=== PATIENT | female | born 1970 | race Caucasian/White ===

== ENCOUNTER 2018-05-09 19:53 | Emergency (ER) | payer BC ==
--- NOTE | 2018-05-09 20:18 | EDPHY ---
H & P Stated Complaint: L toohache, facial swelling, and numbness - Personal History LMP (Females 10-55): Now Current Tetanus/Diphtheria Vaccine: Yes Current Tetanus Diphtheria and Acellular Pertussis (TDAP): Yes Tetanus Vaccine Date: 2009 - Medical/Surgical History Hx Asthma: No Hx Chronic Respiratory Disease: No Hx Diabetes: No Hx Cardiac Disease: No Hx Renal Disease: No Hx Cirrhosis: No Hx Alcoholism: No Hx HIV/AIDS: No Hx Splenectomy or Spleen Trauma: No Other PMH: , breast aug, hernia repair - Social History Smoking Status: Never smoked Time Seen by Provider: 05/09/18 20:10 HPI/ROS: CHIEF COMPLAINT: Toothache, neck pain, ear pain, chest pain HISTORY OF PRESENT ILLNESS: 48-year-old female via private vehicle complaining of left neck and arm pain. Triage note states left dental pain and she does state that she has experienced left dental pain for a few days but also notes that since approximately 3:00 p.m. Today before getting on a plane from [place] in the seated [place] she has been experiencing left-sided neck arm in partial chest pain to the point where she having difficulty sitting upright. She traveled by plane frequently. PRIMARY CARE PROVIDER: In [facility] REVIEW OF SYSTEMS: 10 systems reviewed and negative with the exception of the elements mentioned in the history of present illness PAST MEDICAL & SURGICAL HISTORY: No pertinent medical or surgical history SOCIAL HISTORY: Nonsmoker. No drug use. . Lives in [place], extensive airplane travel (approx 150,000 air miles/year) FAMILY HISTORY: Biologic father age 47 of [place] PHYSICAL EXAM (Prior to examination, patient consented to physical exam, hands were washed and my usual and customary physical exam procedures followed) 1) GENERAL: Well-developed, well-nourished, alert and oriented. Appears to be in no acute distress. 2) HEAD: Normocephalic, atraumatic 3) HEENT: Pupils equal, round, reactive to light bilaterally. Sclera anicteric. Nasopharynx, oropharynx, clear, no lesions. Moist Mucous membranes. Tender to percussion buccal aspect of gingiva teeth 13, 14, 15. Gingival irritation noted. No evidence of abscess. Floor of mouth soft no evidence of Nain's angina. Right ear clear EAC, no evidence of otitis media otitis externa. Left ear: Tender to palpation the tragus and movement of the auricle. Left external auditory canals erythematous with no debris or drainage. No foul smell. Left tympanic membrane is grossly intact, nonbulging non erythematous with no evidence of otitis media. 4) NECK: Full range of motion, no meningeal signs. Positive left anterior cervical adenopathy which is tender 5) LUNGS: Clear auscultation bilaterally, no wheezes, no rhonchi, no retractions. 6) HEART: Regular rate and rhythm, no murmur, no heave, no gallop. 7) ABDOMEN: No guarding, no rebound, no focal tenderness, negative McBurney's, negative Swan's, negative Rovsing's, negative peritoneal sign, 8) MUSCULOSKELETAL: Moving all extremities, no focal areas of tenderness, no obvious trauma. No peripheral edema or discoloration. Specifically left upper extremity has pain-free range of motion, no evidence of trauma, no discoloration , no rash no lesions, soft compartments, neurovascularly intact 9) BACK: No CVA tenderness, no midline vertebral tenderness, no fluctuance, no step-off, no obvious trauma, no visual or palpable abnormality. 10) SKIN: No rash, no petechiae. 11) Psychiatric: Patient is oriented X 3, there is no agitation. DIFFERENTIAL DIAGNOSIS: In no particular order, including but not limited to myocardial ischemia, pulmonary embolus, chest wall pain, pleural inflammation and pulmonary infectious causes. (Evgeny Boggs Tessa) Constitutional: Initial Vital Signs Temperature (C) 36.7 C 05/09/18 19:58 Heart Rate 62 05/09/18 19:58 Respiratory Rate 16 05/09/18 19:58 Blood Pressure 114/78 05/09/18 19:58 O2 Sat (%) 95 05/09/18 19:58 O2 Delivery Mode Room Air Allergies/Adverse Reactions: No Known Allergies Allergy (Unverified 05/09/18 19:58) Home Medications: Medication Instructions Recorded Amoxicillin/Clavulanate Pot 875 mg PO BID #14 tab 05/09/18 [Augmentin 875 mg tab] Ciprofloxacin HCl/Dexameth 4 drop OT BID #1 drops.susp 05/09/18 [Ciprodex Otic Suspension] Hydrocodone/APAP 5/325 [[place] 1 tab PO Q6 PRN #15 tab 05/09/18 5/325 (RX)] Medical Decision Making - Diagnostics EKG Interpretation: EKG interpreted by me shows normal sinus rhythm normal interval and axis. QRS is normal there is no significant ST elevation or depression. There is no arrhythmia. The rate is 59 (Mehdi Kaminski) Imaging Results: Imaging Impressions Chest X-Ray 05/09/18 20:19 Impression: Query mild airways disease. ED Course/Re-evaluation: Patient was re-evaluated with serial exams the patient was also seen exam by Dr. Mehdi Kaminski in the E [facility]. She is noted to have gingival irritation and odontalgia. I recommend follow up with her dentist when she returns [place]. I am starting her on Augmentin. She is also noted to have a left otitis externa with no evidence of otitis media. No evidence of mastoiditis. She is started on Ciprodex drops as well as given analgesia. Regarding her chest pain complaints, I think that this less than likely represents cardiac and /or pulmonary disease. She has negative D-dimer with moderate pretest suspicion , negative troponin in the presence of symptoms for several hours, normal sinus rhythm on EKG, negative troponin. She is low risk Heart score. Plan will be discharged with close follow-up with her primary care provider in dentist in [place]. My Usual and customary discharge precautions instructions provided. She feels comfortable being discharged. (Evgeny Boggs) - Data Points Laboratory Results: Laboratory Results 05/09/18 20:40 05/09/18 20:40 05/09/18 05/09/18 05/09/18 20:41 20:40 20:40 WBC RBC Hgb Hct MCV MCH MCHC RDW Plt Count MPV Neut % (Auto) Lymph % (Auto) [place] % (Auto) Eos % (Auto) Baso % (Auto) Nucleat RBC Rel Count Absolute Neuts (auto) Absolute Lymphs (auto) Absolute Monos (auto) Absolute Eos (auto) Absolute Basos (auto) Absolute Nucleated RBC Immature Gran % Immature Gran # D-Dimer < 0.27 ug/mLFEU ug/mLFEU (0.00-0.50) Sodium 138 mEq/L mEq/L (135-145) Potassium 3.9 mEq/L mEq/L (3.3-5.0) Chloride 102 mEq/L mEq/L (97-110) Carbon Dioxide 27 mEq/l mEq/l (22-31) Anion Gap 9 mEq/L mEq/L (6-14) BUN 7 mg/dL mg/dL (7-23) Creatinine 0.7 mg/dL mg/dL (0.6-1.0) Estimated GFR > 60 Glucose 87 mg/dL mg/dL (70-100) Calcium 9.2 mg/dL mg/dL (8.5-10.4) POC Troponin I 0.00 ng/mL ng/mL (0.00-0.08) 05/09/18 20:40 WBC 8.48 10^3/uL 10^3/uL (3.80-9.50) RBC 3.94 10^6/uL L 10^6/uL (4.18-5.33) Hgb 12.6 g/dL g/dL (12.6-16.3) Hct 37.2 % L % (38.0-47.0) MCV 94.4 fL fL (81.5-99.8) MCH 32.0 pg pg (27.9-34.1) MCHC 33.9 g/dL g/dL (32.4-36.7) RDW 12.3 % % (11.5-15.2) Plt Count 248 10^3/uL 10^3/uL (150-400) MPV 9.3 fL fL (8.7-11.7) Neut % (Auto) 49.2 % % (39.3-74.2) Lymph % (Auto) 36.3 % % (15.0-45.0) [place] % (Auto) 8.1 % % (4.5-13.0) Eos % (Auto) 5.5 % % (0.6-7.6) Baso % (Auto) 0.5 % % (0.3-1.7) Nucleat RBC Rel Count 0.0 % % (0.0-0.2) Absolute Neuts (auto) 4.17 10^3/uL 10^3/uL (1.70-6.50) Absolute Lymphs (auto) 3.08 10^3/uL H 10^3/uL (1.00-3.00) Absolute Monos (auto) 0.69 10^3/uL 10^3/uL (0.30-0.80) Absolute Eos (auto) 0.47 10^3/uL H 10^3/uL (0.03-0.40) Absolute Basos (auto) 0.04 10^3/uL 10^3/uL (0.02-0.10) Absolute Nucleated RBC 0.00 10^3/uL 10^3/uL (0-0.01) Immature Gran % 0.4 % % (0.0-1.1) Immature Gran # 0.03 10^3/uL 10^3/uL (0.00-0.10) D-Dimer Sodium Potassium Chloride Carbon Dioxide Anion Gap BUN Creatinine Estimated GFR Glucose Calcium POC Troponin I Medications Given: Discontinued Medications Hydrocodone Bitart/Acetaminophen ([place] 5/325mg Prepack#6) 1 btl TAKEHOME EDNOW ONE Stop: 05/09/18 22:33 Last Admin: 05/09/18 22:43 Dose: 1 btl Amoxicillin/Clavulanate Potassium (Augmentin 875mg) 875 mg PO EDNOW ONE PRN Reason: Protocol Stop: 05/09/18 22:46 Last Admin: 05/09/18 22:46 Dose: 875 mg Aspirin (Aspirin) 324 mg PO EDNOW ONE Stop: 05/09/18 20:20 Last Admin: 05/09/18 20:36 Dose: 324 mg Morphine Sulfate (Morphine) 4 mg IVP EDNOW ONE Stop: 05/09/18 21:00 Last Admin: 05/09/18 21:05 Dose: 4 mg Morphine Sulfate (Morphine) 4 mg IVP EDNOW ONE Stop: 05/09/18 21:35 Last Admin: 05/09/18 21:43 Dose: 4 mg Point of Care Test Results: Chemistry 05/09/18 20:41 POC Troponin I 0.00 ng/mL ng/mL (0.00-0.08) Departure - Departure Disposition: Home, Routine, Self-Care Clinical Impression: Odontalgia Left otitis externa Qualifiers: Otitis externa type: other infective Chronicity: acute Qualified Code(s): H60.392 - Other infective otitis externa, left ear Condition: Good Instructions: Hydrocodone/Acetaminophen (By mouth), Ear Infection (ED), Toothache (ED) Additional Instructions: Return to the closest emergency department if you develop new or worsening symptoms, if you develop chest pain, shortness of breath, or any other symptoms that concern you. Referrals: PARUL LUCERO [Other] - 1-2 days without fail Recommend, you see your dentist next week [Other] - As per Instructions Prescriptions: Amoxicillin/Clavulanate Pot [Augmentin 875 mg tab] 875 mg PO BID #14 tab Ciprofloxacin HCl/Dexameth [Ciprodex Otic Suspension] 4 drop OT BID #1 drops.susp Hydrocodone/APAP 5/325 [[place] 5/325 (RX)] 1 tab PO Q6 PRN #15 tab PRN Reason: Pain, Severe
[2018-05-09] MEDS ORDERED: ASPIRIN 81 MG CHEWABLE TAB PO ONE (20:19)
[2018-05-09 20:49] LABS: PLATELET COUNT 248 10^3/uL (150-400)
[2018-05-09 22:20] VITALS: BP 117/78
[2018-05-09] MEDS ORDERED: HYDROCOD/APAP 5/325 PREPACK#6 BTL TAKEHOME ONE (22:32)
[2018-05-09] MEDS ORDERED: AMOXICILLIN/CLAVULANATE POT 875/125 MG TAB PO ONE (22:45)
== END 2018-05-09 22:51 | disposition home or self-care (01) ==
DX: H60.92 Unspecified otitis externa, left ear (principal); K08.89 Other specified disorders of teeth and supporting structures
CPT/HCPCS: 84484-PO; 96374; J2270